=== PATIENT | male | born 1955 | race Caucasian/White ===

== ENCOUNTER → 2018-03-02 | Outpatient (CLI) | payer OTHER ==
[~2018-03-02] MED LIST: AMLO5TAB2 PO; ATOR20TA PO; METF-688 PO; METO-93 PO; QUIN40TA15 PO; TAMS0.4C2 PO
== END | disposition home or self-care (01) ==
LOC: STAR 13:17
PROVIDERS: ATTEND Thoracic Surgery (Cardiothoracic Vascular Surgery)
DX: Z01.818 Encounter for other preprocedural examination (principal); I25.9 Chronic ischemic heart disease, unspecified
CPT/HCPCS: 93005

== ENCOUNTER → 2018-03-03 | Outpatient (CLI) | payer OTHER ==
[~2018-03-03] MED LIST changes: +OMNIPAQUE 350 MG/ML, 100ML BOTTLE ONE
== END | disposition home or self-care (01) ==
LOC: CFH 13:35
PROVIDERS: ATTEND Thoracic Surgery (Cardiothoracic Vascular Surgery)
DX: I31.3 Pericardial effusion (noninflammatory) (principal); K76.0 Fatty (change of) liver, not elsewhere classified; E04.9 Nontoxic goiter, unspecified; R91.1 Solitary pulmonary nodule; K80.20 Calculus of gallbladder without cholecystitis without obstruction; K76.89 Other specified diseases of liver; I70.0 Atherosclerosis of aorta
CPT/HCPCS: 71260; Q9967

== ENCOUNTER 2018-03-10 12:15 | Inpatient (IN) | payer OTHER ==
[~2018-03-10] VITALS: Ht 177.8 cm; Wt 101.5 kg
[~2018-03-10 12:15] MED LIST changes: -OMNIPAQUE 350 MG/ML, 100ML BOTTLE ONE
[2018-03-10] MEDS ORDERED: LACTATED RINGERS 1,000 ML IV SCH (12:26)
[2018-03-10 12:50] VITALS: BP 137/88
[2018-03-10] MEDS ORDERED: ACETAMINOPHEN 500 MG TABLET PO ONE (13:00)
[2018-03-10] MEDS ORDERED: ONDANSETRON 2MG/ML, 2ML IVPush ONE (13:00)
[2018-03-10] MEDS ORDERED: GABAPENTIN 300 MG CAPSULE PO ONE (13:00)
[2018-03-10] MEDS: TAMSULOSIN 0.4 MG CAP.ER.24H PO ONE ×2 (13:39→13:44)
[2018-03-10] MEDS ORDERED: FENTANYL PF 100 MCG/2ML ONE ×2 (14:44→16:47)
[2018-03-10] MEDS ORDERED: MIDAZOLAM 1 MG/ML, 2ML ONE (14:45)
[2018-03-10] MEDS ORDERED: BUPIVACAINE/PF-EPI 0.5% 1:200K ONE (15:06)
[2018-03-10] MEDS ORDERED: EPHEDRINE 50 MG/ML, 1ML ONE (15:56)
[2018-03-10] MEDS ORDERED: GLYCOPYRROLATE 0.2MG/1ML, 5ML ONE (16:29)
[2018-03-10] MEDS ORDERED: ROCURONIUM 10MG/ML,5ML ONE (16:29)
[2018-03-10] MEDS ORDERED: PROPOFOL 10 MG/ML, 20ML ONE (16:29)
[2018-03-10] MEDS ORDERED: DEXAMETHASONE 4 MG/ML, 1ML ONE (16:29)
[2018-03-10] MEDS ORDERED: NEOSTIGMINE 1 MG/ML, 10ML ONE (16:29)
[2018-03-10] MEDS ORDERED: ONDANSETRON 2MG/ML, 2ML ONE (16:29)
[2018-03-10] MEDS ORDERED: SUCCINYLCHOLINE 20 MG/ML, 10ML ONE (16:29)
[2018-03-10] MEDS ORDERED: CEFAZOLIN 1,000 MG ONE (16:29)
[2018-03-10] MEDS ORDERED: ONDANSETRON ODT 8 MG PO PRN (16:30)
[2018-03-10] MEDS ORDERED: MIDAZOLAM 1 MG/ML, 2ML IV PRN (16:30)
[2018-03-10] MEDS ORDERED: LABETALOL 5MG/ML, 20ML IV PRN (16:30)
[2018-03-10] MEDS ORDERED: MORPHINE SULFATE 4 MG/ML, 1ML IVPush PRN (16:30)
[2018-03-10] MEDS ORDERED: hydrALAzine 20 MG/ML, 1ML IV PRN (16:30)
[2018-03-10] MEDS ORDERED: PROMETHAZINE 25 MG/ML, 1ML IV PRN (16:30)
[2018-03-10] MEDS ORDERED: OXYcodone 5 MG/5 ML ORAL.SOL UDC PO PRN (16:30)
[2018-03-10] MEDS ORDERED: ALBUTEROL/IPRATROPIUM 2.5MG/0.5MG, 3 ML NPPB PRN (16:30)
[2018-03-10] MEDS ORDERED: HYDROmorphone 1 MG/ML, 1ML IV PRN (16:30)
[2018-03-10] MEDS: LACTATED RINGERS 1,000 ML IV SCH (16:42)
[2018-03-10] MEDS ORDERED: OXYcodone 5 MG/5 ML ORAL.SOL UDC ONE (16:48)
[2018-03-10] MEDS: FENTANYL PF 100 MCG/2ML IV PRN ×2 (16:50→16:55)
[2018-03-10] MEDS ORDERED: ACETAMINOPHEN 325 MG TABLET PO PRN (17:00)
[2018-03-10] MEDS ORDERED: DIPHENHYDRAMINE 25 MG CAPSULE PO PRN (17:00)
[2018-03-10] MEDS ORDERED: DIPHENHYDRAMINE 50 MG/ML, 1ML IVPush PRN (17:00)
[2018-03-10] MEDS ORDERED: ONDANSETRON 2MG/ML, 2ML IVPush PRN (17:00)
[2018-03-10] MEDS ORDERED: morphine SULFATE 10 MG/ML, 1ML IVPush PRN (17:00)
[2018-03-10] MEDS ORDERED: LORazepam 0.5MG TABLET PO PRN (17:00)
[2018-03-10] MEDS ORDERED: hydrALAzine 20 MG/ML, 1ML IVPush PRN (17:00)
[2018-03-10] MEDS ORDERED: FAMOTIDINE 20 MG TABLET PO SCH (17:00)
[2018-03-10] MEDS ORDERED: LORazepam 2 MG/ML, 1ML IVPush PRN (17:00)
[2018-03-10] MEDS ORDERED: HYDROcodone/APAP 5/325 TABLET PO PRN (17:00)
[2018-03-10] MEDS ORDERED: ENALAPRILAT 1.25 MG/ML, 2ML IVPush PRN (17:00)
[2018-03-10] MEDS: INSULIN REGULAR 100 UNITS/ML, 3ML VIAL SQ-INSULIN SCH ×2 (17:30→23:36)
[2018-03-10] MEDS: FAMOTIDINE 20 MG/2 ML IVPush SCH (19:00)
[2018-03-10 19:33] VITALS: BP 128/77
[2018-03-10] MEDS: TAMSULOSIN 0.4 MG CAP.ER.24H PO SCH (21:25)
[2018-03-10] MEDS: metFORMIN XR 500 MG TAB.ER.24H PO SCH (21:25)
[2018-03-11 01:05] VITALS: BP 133/82
[2018-03-11] MEDS: LACTATED RINGERS 1,000 ML IV SCH (02:42)
[2018-03-11] MEDS: INSULIN REGULAR 100 UNITS/ML, 3ML VIAL SQ-INSULIN SCH (07:00)
[2018-03-11 07:05] VITALS: BP 115/70
[2018-03-11] MEDS: TAMSULOSIN 0.4 MG CAP.ER.24H PO SCH (08:26)
[2018-03-11] MEDS: metFORMIN XR 500 MG TAB.ER.24H PO SCH (08:26)
[2018-03-11] MEDS: FAMOTIDINE 20 MG/2 ML IVPush SCH (08:27)
[2018-03-11] MEDS ORDERED: AMLODIPINE 5 MG TABLET PO SCH (09:00)
[2018-03-11] MEDS ORDERED: QUINAPRIL 20MG TABLET PO SCH (09:00)
[2018-03-11] MEDS ORDERED: METOPROLOL SUCCINATE 50 MG TAB.ER.24H PO SCH (09:00)
[2018-03-11] MEDS ORDERED: ENOXAPARIN 40 MG/0.4 ML SQ SCH (09:00)
[2018-03-11] MEDS ORDERED: HYDR-3240 PO (10:19)
== END 2018-03-11 10:35 | disposition home or self-care (01) | DRG 316 ==
LOC: OBSVTOIN 12:15 → ORIP 12:15 → INTOOBSV 12:15 → 4NOR 18:19 → 5SO 20:14 → DCLOUNGE 03-11 10:23 → UNDODISOB 03-11 10:35
PROVIDERS: ADMIT Thoracic Surgery (Cardiothoracic Vascular Surgery); ATTEND Thoracic Surgery (Cardiothoracic Vascular Surgery)
PROC: 0W9D4ZZ Drainage of Pericardial Cavity, Percutaneous Endoscopic Approach (ICD-10-PCS; principal; 2018-03-10 15:00)
DX: I31.3 Pericardial effusion (noninflammatory) (principal); I10 Essential (primary) hypertension; N40.0 Benign prostatic hyperplasia without lower urinary tract symptoms; E11.9 Type 2 diabetes mellitus without complications; Z90.49 Acquired absence of other specified parts of digestive tract; Z82.49 Family history of ischemic heart disease and other diseases of the circulatory system
CPT/HCPCS: 32659; 36415; 71045; 82962; 86850; 86900; 88305; 96372; C1729; C1760; G0378; J0330; J0690; J1100; J1650; J2250; J2405; J2704; J2710; J3010; J3490; J7120; S0028

== ENCOUNTER → 2018-05-05 | Outpatient (CLI) | payer OTHER ==
[~2018-05-05] MED LIST changes: +HYDR-3240 PO; +LIDOCAINE-MPF 2%, 2ML ONE
== END | disposition home or self-care (01) ==
LOC: RAD 10:04
PROVIDERS: ATTEND Otolaryngology Facial Plastic Surgery
DX: E04.2 Nontoxic multinodular goiter (principal)
CPT/HCPCS: 76536; 76942; 88172; 88173; J3490

== ENCOUNTER → 2018-05-14 | Outpatient (CLI) | payer OTHER ==
[~2018-05-14] MED LIST changes: -AMLO5TAB2 PO; +AMLO5TAB7 PO; -LIDOCAINE-MPF 2%, 2ML ONE
== END | disposition home or self-care (01) ==
LOC: CFH 10:54
PROVIDERS: ATTEND Family Medicine
DX: R06.09 Other forms of dyspnea (principal); E11.9 Type 2 diabetes mellitus without complications; Z85.46 Personal history of malignant neoplasm of prostate
CPT/HCPCS: 71046

== ENCOUNTER 2020-04-11 13:29 | Outpatient (CLI) | payer OTHER ==
[~2020-04-11 13:29] MED LIST changes: +AMLO-150 PO; -AMLO5TAB7 PO; +LIDOCAINE-MPF 1%, 5ML ONE
== END 2020-04-11 23:59 | disposition home or self-care (01) ==
LOC: RAD 13:29
PROVIDERS: ATTEND Family Medicine
DX: E04.1 Nontoxic single thyroid nodule (principal); Z79.899 Other long term (current) drug therapy
CPT/HCPCS: 10005; 88172; 88173